=== PATIENT | female | born 1955 | race Caucasian/White ===

== ENCOUNTER 2018-01-19 00:07 | Emergency (ER) | payer OTHER ==
[~2018-01-19] VITALS: Ht 162.6 cm; Wt 47.6 kg
[~2018-01-19 00:07] MED LIST: ARMOUR THYROID120 M1 PO; ARMOUR THYROID300 MG PO; BIO IDENTICAL; CHLORDIAZEPOXID10 MG PO; CORTEF5 MG PO; DHEA25 MG PO; FLEXERIL PO; HYDROCODONE-APA1 TA1 PO; INDOMETHACIN 2525 MG PO; KRILL OIL500 MG; LIBRIUM; MELATONIN10 M2 PO; PROPRANOLOL 1010 M1 PO; T COMPOUND; VICODIN 5-5001 EACH PO; VITAMIN D35000 UNI1 PO; ZOVIRAX15 GM TP; [UNRECOGNIZED DRUG - OTHER]; [UNRECOGNIZED DRUG - OTHER]; [UNRECOGNIZED DRUG - OTHER]; [UNRECOGNIZED DRUG - OTHER]; [UNRECOGNIZED DRUG - OTHER]
[2018-01-19 00:19] VITALS: BP 147/78
[2018-01-19] MEDS ORDERED: HYDROCODONE-AP1 EAC6 PO (00:24)
== END 2018-01-19 00:30 | disposition home or self-care (01) ==
LOC: M.ERS 00:07
DX: G89.29 Other chronic pain (principal); M79.644 Pain in right finger(s); E03.9 Hypothyroidism, unspecified; F41.0 Panic disorder [episodic paroxysmal anxiety]; F17.210 Nicotine dependence, cigarettes, uncomplicated; Z88.6 Allergy status to analgesic agent; Z88.8 Allergy status to other drugs, medicaments and biological substances

== ENCOUNTER 2018-04-26 08:12 | Emergency (ER) | payer OTHER ==
[~2018-04-26] VITALS: Ht 160 cm; Wt 45.4 kg
[~2018-04-26 08:12] MED LIST changes: +HYDROCODONE-AP1 EAC6 PO
[2018-04-26] MEDS ORDERED: ASPIR 8181 MG PO (08:18)
[2018-04-26] MEDS ORDERED: ARMOUR THYROID15 M1 PO (08:19)
[2018-04-26] MEDS ORDERED: LIBRAX CAPSULE1 EACH PO (08:19)
[2018-04-26] MEDS ORDERED: VITAMIN B-12500 MCG PO (08:19)
[2018-04-26] MEDS ORDERED: PROPRANOLOL 1010 MG PO (08:19)
[2018-04-26 10:57] VITALS: BP 135/80
== END 2018-04-26 10:58 | disposition home or self-care (01) ==
LOC: M.ERS 08:12
DX: S00.83XA Contusion of other part of head, initial encounter (principal); E03.9 Hypothyroidism, unspecified; F41.0 Panic disorder [episodic paroxysmal anxiety]; F17.210 Nicotine dependence, cigarettes, uncomplicated; Z88.8 Allergy status to other drugs, medicaments and biological substances; W22.8XXA Striking against or struck by other objects, initial encounter; Y93.89 Activity, other specified; Y92.89 Other specified places as the place of occurrence of the external cause; Y99.8 Other external cause status

== ENCOUNTER 2018-05-22 04:30 | Inpatient (IN) | payer OTHER ==
[~2018-05-22] VITALS: Ht 160 cm; Wt 52.2 kg
[~2018-05-22 04:30] MED LIST changes: +ARMOUR THYROID15 M1 PO; +ASPIR 8181 MG PO; +LIBRAX CAPSULE1 EACH PO; +PROPRANOLOL 1010 MG PO; +VITAMIN B-12500 MCG PO
[2018-05-22 04:45] VITALS: BP 142/77
[2018-05-22 05:26] LABS: HEMATOCRIT 33.1 % (37.0-47.0); HEMOGLOBIN 11.5 gm/dL (12.0-15.0); MCH 36.2 pg (26.0-34.0); MCHC 34.8 g/dL (28.0-37.0); MPV 7.5 fl. (7.2-11.1); NUCLEATED RBCS 0 /100WBC; PLATELET COUNT* 205 thou/uL (150-400); RBC 3.18 mil/uL (4.20-5.00); RDW-CV 12.4 % (10.5-14.5); WBC 8.6 thou/uL (4.0-11.0)
[2018-05-22 05:36] LABS: PROTIME 10.4 Seconds (9.20-11.50)
[2018-05-22 05:54] LABS: CALCIUM 7.7 mg/dL (8.5-10.1); CREATININE 0.5 mg/dL (0.6-1.3); POTASSIUM 4.1 mmol/L (3.5-5.1)
[2018-05-22 05:59] LABS: ALBUMIN 3.6 g/dL (3.4-5.0); TOTAL BILIRUBIN 0.4 mg/dL (<0.1-1.0); TOTAL PROTEIN 6.4 g/dL (6.4-8.2)
[2018-05-22 06:18] LABS: ABSOLUTE EOSINOPHILS 0.1 thou/uL (0.0-0.7); ABSOLUTE LYMPHOCYTES 0.9 thou/uL (0.8-5.3); ABSOLUTE MONOCYTES 0.4 thou/uL (0.0-1.2); ABSOLUTE NEUTROPHILS 7.2 thou/uL (1.6-8.1); METAMYELOCYTES 1 %; PLATELET ESTIMATE ADEQUATE
[2018-05-22 07:15] LABS: AMP/METHAMP Negative (Negative); BARBITURATES Negative (Negative); BENZODIAZEPINES POSITIVE (Negative); COCAINE Negative (Negative); METHADONE Negative (Negative); OPIATES Negative (Negative); PCP Negative (Negative); THC Negative (Negative)
--- NOTE | 2018-05-22 07:33 | NUR ---
UPON ARRIVAL FROM CT, CT STATES PT'S IV WAS BAD. CT TRIED TO START IV AND WAS UNSUCCESSFUL. NEW IV STARTED BY THIS RN
[2018-05-22 08:47] VITALS: BP 112/71
[2018-05-22 08:54] VITALS: BP 130/78
[2018-05-22] MEDS ORDERED: CHLORDIAZEPOXID25 M1 PO (09:43)
[2018-05-22 10:43] LABS: CALCIUM 7.6 mg/dL (8.5-10.1); CREATININE 0.6 mg/dL (0.6-1.3); POTASSIUM 3.8 mmol/L (3.5-5.1)
--- NOTE | 2018-05-22 12:01 | EKG ---
[place] [address] ELECTROCARDIOGRAM REPORT Name: FARZAD YOUNGER Room: [address] ADM IN M.R.#: [id number] Admission: 05/22/18 Attend Phys: Baldemar Dumont, Discharge: Date of : 57 Report #: [id number] THIS REPORT FOR: //name// [facility] [place] ED Test Date: 2018-05-22 Test Time: 05:08:18 Pat Name: FARZAD YOUNGER Department: Room: [facility] Gender: F Home Stager: FAZAL : 1955 Requested By: Vandana Stout Order Number: [id number] MD: Aaron Pelletier Measurements Intervals [place] Rate: 87 P: 72 HI: 137 QRS: 92 QRSD: 106 T: 28 QT: 404 QTc: 486 Interpretive Statements Sinus rhythm Left posterior fascicular block Borderline prolonged QT interval Compared to ECG 01/03/2015 11:41:13 Left posterior fascicular block now present Right-axis deviation no longer present Atrial abnormality no longer present Electronically Signed On 05-22-2018 12:01:34 CDT by Aaron Pelletier [email or web address] <ELECTRONICALLY SIGNED> By: Aaron Pelletier MD, FACC 05/22/18 1201 0508 [id number] Aaron Pelletier MD, FACC /EPI
[2018-05-22 16:52] VITALS: BP 179/65
--- NOTE | 2018-05-22 19:07 | NUR ---
ALERT AND ORIENTED X3, VERY FORGETFUL. IV I SPATENT AND INFUSING. PATIPEREZN HAS HAD TWO EPISODE OF VOMITTING BUT DENIES NEED FOR NAUSEA MEDICATION. PAIN BEING MANAGED WITH PO AND IV PAIN MEDICATION. HAVING TREMORS, VERY RESTLESS AND HAS TRIED TO GET UP ON OWN MULTIPLE TIMES THROUGHOUT SHIFT. PATIENT DC'D IV THIS AM AND ALMOST DC'D THE 2ND THIS AFTERNOON. PATIENT ADMITS TO ALCOHOL ABUSE AND ALCOHOL WITHDRAWAL ASSESSMENT CHARTED. WITHDRAWAL SYMPTOMS HAVE PROGRESSED THROUGHOUT SHIFT, DR. MATTSON HAS BEEN NOTFIED AND ORDERED HER TO TRANSFER TO [facility]. ATIVAN HAS BEEN GIVEN Q4H THROUGHOUT SHIFT. PATIENT IS TACHY AND ELEVATED BP. SLING IN PLACE ON LEFT ARM. HOURLY ROUNDS HAVE BEEN MAINTAINED THROUGHOUT SHIFT. SITTER AT BEDSIDE AT THIS TIME. CALL LIGHT IS WITHIN REACH. NURSING WILL CONTINUE TO MONITOR.
[2018-05-22 19:20] VITALS: BP 140/70
[2018-05-22 20:00] VITALS: BP 155/54
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
[2018-05-23 04:51] LABS: HEMATOCRIT 25.8 % (37.0-47.0); MCH 36.7 pg (26.0-34.0); MCHC 34.9 g/dL (28.0-37.0); MCV 105.2 fL (80.0-100.0); MPV 8.1 fl. (7.2-11.1); RBC 2.45 mil/uL (4.20-5.00); RDW-CV 12.4 % (10.5-14.5); WBC 3.3 thou/uL (4.0-11.0)
[2018-05-23 05:13] LABS: CALCIUM 7.4 mg/dL (8.5-10.1); CREATININE 0.5 mg/dL (0.6-1.3); POTASSIUM 3.8 mmol/L (3.5-5.1)
[2018-05-23 05:30] VITALS: BP 120/72
[2018-05-23 08:07] VITALS: BP 133/69
--- NOTE | 2018-05-23 09:46 | NUR ---
ASSUMED CARE OF PT THIS AM AROUND 0715- SENIOR STATISTICIAN IN PLACE ORDERED, TRACING ST- UPON ASSESSMENT PT NOTED TO BE RESTING IN BED, EYES CLOSED- PT ARROUSABLE, BUT DROWSY THIS AM- PT A&O X3- CONTINENT OF BOWEL AND BLADDER- SBA WITH AMBULATION, NWB TO LEFT UE SLING IN PLACE INDICATED- LCTA, RESP EVEN AND UN-LABORED- VSS, O2 SAT 98% ON RA- ABDOMEN SOFT/ROUND/NON-TENDER, BS X4 QUADS- LAST BM REPORTED 05/22/18- IV NOTED TO RIGHT HAND INTACT, IVF INFUSSING PRESCRIBED- SKIN TEAR REPORTED TO BACK, WITH DRESSING IN PLACE INDICATED- CIWA THIS AM NOTED TO BE A 3, ATIVAN PRESCIBED-GOOD PO INTAKE NOTED THIS AM WITH BREAKFAST- PT RATES PAIN 05/04 THIS AM- PRN OXY GIVEN AT 0910-ICE TO SHOULDER FOR PAIN-LEFT ARM NOTED WITH BRUISING AND SWELLING, SENSATION INTACT, LEFT RADIAL PULSE 1+- CALL LIGHT AND PERSONAL BELONGINGS WITH IN REACH-SITTER AT SIDE R/T SAFETY/NEEDS- ALL NEEDS MET AT THIS TIME-WCTM
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
[2018-05-23 12:00] VITALS: BP 110/47
[2018-05-23 12:14] LABS: CALCIUM 7.9 mg/dL (8.5-10.1); CREATININE 0.6 mg/dL (0.6-1.3); POTASSIUM 4.1 mmol/L (3.5-5.1)
--- NOTE | 2018-05-23 16:55 | NUR ---
PT CURRENLTY RESTING IN BED, SITTER AT SIDE FOR SAFETY/NEEDS- TECHNICAL SME IN PLACE ORDERED, TRACING ST- IV TO RIGHT HAND NOTED TO CLOT OFF THIS SHIFT, NEW 20 GAUGE PLACED TO RIGHT FA- IVF INFUSSING PRESCIBED- NA+ STILL REMAINS AT 126 THIS SHIFT- POOR PO INTAKE WITH MEALS- ENSURE SHAKE OFFERED- LATEST CIWA NOTED AT 8- PT NOTED TO BE ANXIOUS WITH IMPAIRED COGNITION- CONFUSSION NOTED- SCHEDULED ATIVAN GIVEN WITH NEEDS PRN ATIVAN X1 THIS SHIFT- PT CONTINUES TO BECOME ANXIOUS AND NOTED TO BE TRYING TO CLIMB OUT OF BED, IMPULSIVE AT TIMES- PRN OXY X3 THIS SHIFT WITH LATEST DOSE AT 1639-SLING EDUCATION ONGOING, PT NOTED TO BE TAKING LEFT ARM OUT OF SLING AND DANGLING- CONSTANT REQUEING NEEDED- BRUISING AND SWELLING CONTINUES TO LEFT UE- CALL LIGHT AND PERSONAL BELONGINGS WITH IN REACH- ALL NEEDS MET AT THIS TIME-WCTM
[2018-05-23 17:15] VITALS: BP 144/61
[2018-05-23 20:00] VITALS: BP 151/86
--- NOTE | 2018-05-23 21:59 | NUR ---
PT ALERT CONFUSED TO PLACE AND SITUATION. AGGITATED, MOVING AROUND IN BED. MILD TREMORS. ATIVAN GIVEN FOR CIWA 8. OXYCODONE GIVEN FOR PAIN IN L SHOULDER 03/04. PT SLEEPING AT THIS TIME. TELEMETRY SHOWS ST 129 UPON INITAL ASSESSMENT. HR 110 WHILE SLEEPING.
[2018-05-24 04:00] VITALS: BP 129/66; BP 136/61
[2018-05-24 04:51] LABS: CALCIUM 7.5 mg/dL (8.5-10.1); CREATININE 0.6 mg/dL (0.6-1.3); MAGNESIUM 1.4 mg/dL (1.8-2.4); POTASSIUM 3.5 mmol/L (3.5-5.1)
--- NOTE | 2018-05-24 05:01 | NUR ---
PT RESTING INTERMITTENTLY. ATIVAN GIVEN PRN WITH SCHEDULED DOSES. PAIN MEDICATION GIVEN TWICE FOR L SHOULDER PAIN. ST 104 AT REST.
[2018-05-24 08:20] VITALS: BP 130/73
[2018-05-24 10:30] LABS: URINE BILIRUBIN NEGATIVE (Negative); URINE BLOOD NEGATIVE (Negative); URINE CLARITY CLEAR; URINE COLOR YELLOW; URINE GLUCOSE-RANDOM NEGATIVE (Negative); URINE KETONES NEGATIVE (Negative); URINE LEUKOCYTES-REFLEX NEGATIVE (Negative); URINE NITRITE-REFLEX NEGATIVE (Negative); URINE PROTEIN NEGATIVE (Negative); URINE UROBILINOGEN 0.2 E.U./dl (0.2-1.0)
[2018-05-24 12:32] LABS: CALCIUM 7.6 mg/dL (8.5-10.1); CREATININE 0.5 mg/dL (0.6-1.3); POTASSIUM 3.6 mmol/L (3.5-5.1)
[2018-05-24 15:27] VITALS: BP 132/74
--- NOTE | 2018-05-24 16:54 | NUR ---
PATIENT ALERT AND ORIENTED X 2-3 WHEN AWAKE. SLEEPING MOST OF DAY. MORE ALERT THIS EVENING, BUT BECOMING MORE ANXIOUS. PRN ATIVAN GIVEN. MULTIVITAMIN BAG INFUSING CURRENTLY. OXYIR USED FOR PAIN CONTROL. SENNA GIVEN TO PREVENT CONSTIPATION. LEFT ARM REMAINS SWOLLEN AND BRUISED. ICE PACKS AND SLING IN PLACE. ORTHO FOLLOWING FOR POSSIBLE SURGICAL INTERVENTION. VSS. SINUS TACH ON MONITOR. WOULD FALL ASLEEP DURING CIWA ASSESSMENTS. BRUISING NOTED ALL OVER BODY. UNSTEADY GAIT WHILE AMBULATING TO BATHROOM. UA SENT. REMAINS ON 1:1 OBSERVATION. WILL CONTINUE TO MONITOR.
--- NOTE | 2018-05-24 17:02 | NUR ---
NURSING DOCUMENTATION BY STACY CALL REVIEWED.
[2018-05-24 20:00] VITALS: BP 158/85
--- NOTE | 2018-05-25 03:12 | NUR ---
PT ORIENTED TO SELF. CONFUSED. CIWA SCORES 11-15. ATIVAN SCHEDULED AND PRN GIVEN. AMBULATES TO BR WITH ASSIST OF ONE.L ARM PAIN CONTROLLED WITH PAIN MEDICATION. L ARM SLING ON. NWB L ARM. ON RA. TELEMETRY SHOWS ST. NS AT 100MLS/HR.
[2018-05-25 06:20] LABS: HEMATOCRIT 22.2 % (37.0-47.0); HEMOGLOBIN 7.7 gm/dL (12.0-15.0); MCH 36.4 pg (26.0-34.0); MCHC 34.6 g/dL (28.0-37.0); MCV 105.5 fL (80.0-100.0); MPV 7.5 fl. (7.2-11.1); RBC 2.1 mil/uL (4.20-5.00); RDW-CV 12.5 % (10.5-14.5)
[2018-05-25 06:24] LABS: CALCIUM 7.5 mg/dL (8.5-10.1); CREATININE 0.6 mg/dL (0.6-1.3); MAGNESIUM 1.5 mg/dL (1.8-2.4); POTASSIUM 3.4 mmol/L (3.5-5.1)
--- NOTE | 2018-05-25 06:37 | NUR ---
AT 0600 PTS BREATH SOUNDS WITH CRACKLES AND COURSE. O2 SAT 88% ON RA. DR FRAIRE NOTIFIED. O2 AT 2 LITERS NC. IVF D/C. BNP, PORTABLE CXRAY ORDERED. JAVON BOSCH HELD.
[2018-05-25 08:00] VITALS: BP 120/66
[2018-05-25 12:00] VITALS: BP 129/71
--- NOTE | 2018-05-25 12:41 | NUR ---
VSS, ASSUMED CARE IN THE AM, ASSESSMENT PERFORMED AND CHARTED, FALL PRECAUTIONS IN PLACE AND CALL LIGHT IN REACH, PT IS A&O1-2 SHE IS VERY SLEEPY AND IMPULSIVE, SITTER AT BEDSIDE AND CALL LIGHT IN REACH, PT IS TRACING ST ON THE MONITOR, SHE IS ON 2L NC AND IS UP WITH ONE TO BSC, SHE STATES PAIN IN HER RIGHT ARM, HER GOAL IS Sfety and IMPROVE MENTATION, WILL FOLLOW WITH PLAN OF CARE.
[2018-05-25 17:02] VITALS: BP 117/76
[2018-05-25 20:06] VITALS: BP 154/84
[2018-05-25 23:47] VITALS: BP 112/58
[2018-05-26 04:47] LABS: MAGNESIUM 1.8 mg/dL (1.8-2.4)
[2018-05-26 04:50] VITALS: BP 107/50
--- NOTE | 2018-05-26 05:56 | NUR ---
PT IS ABLE TO COMMUNICATE HER NEEDS WITH MINOR DIFFICULTY; SHE IS CONFUSED AND OFTEN REQUIRES ADDITIONAL TIME TO RESPOND. 1:1 OBSERVATION WITH A SITTER MAINTAINED; PT STILL TRYING TO GET OUT OF BED AND PULLING AT MEDICAL DEVICES FREQUENTLY. CURRENT PAIN MEDICATION REGIMEN HAS BEEN ADEQUATE FOR CONTROLLING HER PAIN UP TO THIS TIME. SLING TO LEFT ARM MAINTAINED UP TO THIS TIME. CIWA PROTOCOL MAINTAINED. SURGERY FOLLOWING.
[2018-05-26 08:00] VITALS: BP 121/68
[2018-05-26 12:00] VITALS: BP 123/79
--- NOTE | 2018-05-26 12:00 | NUR ---
ASSUMED CARE OF PT AT 0730. PT RESTING IN BED. 1:1 SITTER AT BEDSIDE. PT A&0X1, FORGETFUL, CONFUSED AND IMPULSIVE AT TIMES. CIWA'S COMPLETED. PT SCORING 9. REFER TO CHARTING. PT COMPLAINS OF PAIN TO LEFT SHOULDER- TREATED WITH PRN OXY WITH PARTIAL RELIEF. LEFT ARM IN SLING- BRUISING NOTED. IMMOBILIZATION INSTRUCTED. PT IMPULSIVE, PULLING AT SLING AND MEDICAL EQUIPMENT, NOTED REASON FOR SITTER AT BEDSIDE. INFLUENZA AND MRSA SWAB COLLECTED AND SENT TO LAB. AWAITING RESULTS. URINALYSIS AND SPUTUM NEEDS TO BE OBTAINED. PT TRACING ST ON THE WELDING PANTOGRAPH MACHINE OPERATOR. ON 1L NC SAT 97%, COARSE LUNG SOUNDS NOTED, IV ANTIBIOTICS STARTED TODAY PER DR MATTSON. PT UP WITH 1 ASSIST BSC. PT GOAL FOR TODAY IS REMAIN FREE FROM HALLUCINATIONS, INCREASE ACTIVITY, PAIN MGMT AND MONITOR CIWA'S. AM ASSESSMENT CHARTED. MEDICATIONS PER SEP. PT REPOSITIONS SELF WITH REMINDERS. HOURLY ROUNDING OBSERVED. BED IN LOW POSITION. BED ALARM IN PLACE. FALL PRECAUTIONS IN PLACE. 1:1 SITTER AT BEDSIDE. CALL LIGHT WITHIN REACH. WILL CONTINUE PLAN OF CARE.
[2018-05-26 12:44] LABS: INFLUENZA A ANTIGEN None Detected (None Detect); INFLUENZA B ANTIGEN None Detected (None Detect)
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
--- NOTE | 2018-05-26 17:50 | NUR ---
NO ACUTE CHANGES THROUGHOUT SHIFT. REFER TO CHARTING. URINALYSIS OBTAINED AND SENT TO LAB. AWAITING RESULTS. CIWA CONTINUES TO BE 8-10. REFER TO CHARTING. SOME VISUAL HALLUCINATIONS THIS AFTERNOON. PT CONTINUES TO BE REMINDED ABOUT NWB LUE AND TO LEAVE LUE IN SLING. PT TREATED FOR PAIN THIS AFTERNOON TO LEFT SHOULDER WITH PARTIAL RELIEF. PT APPETITE FAIR. NOT PROGRESSING TOWARDS GOALS. CONTINUES TO TRACE SR/ST ON THE PROPERTIES SUPERVISOR. ON 1L NC SAT UPPER 90'S. DENIES ANY SHORTNESS OF BREATH. PT UP WITH 1 ASSIST TO BATHROOM. MEDICATIONS PER SEP. PT REPOSITIONS SELF WITH REMINDERS. HOURLY ROUNDING OBSERVED. BED IN LOW POSITION. BED ALARM IN PLACE. FALL PRECAUTIONS IN PLACE. CALL LIGHT WITHIN REACH. WILL CONTINUE PLAN OF CARE.
[2018-05-26 19:20] VITALS: BP 140/63
[2018-05-27 00:27] VITALS: BP 117/59
--- NOTE | 2018-05-27 02:40 | NUR ---
ASSUMED CARE OF PT AT 1900. PT IS CONFUSED. VSS. PERTREY. PT IS VERY IMPULSIVE AND RESTLESS. PT IS GETTING FENTANYL FOR PAIN. PT IS IN SINUS RYTHM ON THE TELEMETRY. PT IS RESTING COMFORTABLY IN BED. RESPIRATIONS ARE EVEN AND NONLABORED. WILL CONTINUE TO MONITOR PT.
[2018-05-27 04:17] VITALS: BP 157/83
[2018-05-27 05:41] LABS: HEMATOCRIT 29.8 % (37.0-47.0); MCH 36.5 pg (26.0-34.0); MCV 107.2 fL (80.0-100.0); MPV 9.2 fl. (7.2-11.1); RBC 2.78 mil/uL (4.20-5.00); RDW-CV 12.9 % (10.5-14.5); WBC 7.3 thou/uL (4.0-11.0)
[2018-05-27 06:29] LABS: HEMOGLOBIN 10.1 gm/dL (12.0-15.0)
[2018-05-27 08:00] VITALS: BP 123/72
--- NOTE | 2018-05-27 10:38 | NUR ---
ASSUMED CARE OF PT AT 0730. PT RESTING IN BED. 1:1 SITTER AT BEDSIDE. PT A&6I6-AGSA ONLY. FORGETUL, CONFUSED AND IMPULSIVE. PT COMPLAINED OF PAIN TO LEFT SHOULDER- TREATED WITH PRN OXYCODONE WITH PARTIAL RELIEF. PT TRACING SR ON THE MILITARY ADMINISTRATIVE TECHNICIAN. LUE IN SLING- NWB, BRUISING AND DISCOLORATION NOTED- PHYSICIANS AWARE. LUE ELEVATED ON PILLOWS. PT ON RA THIS AM DURING ASSESSMENT AND SAT 88%, PT PLACED ON 2L NC SAT UP TO 93%. COARSE LUNG SOUNDS NOTED. PT UP WITH 1 ASSIST TO BSC. PT GOAL FOR TODAY IS TO MONITOR ORIENTATION, PAIN MGMT, PT AND OT EVAL AND TREAT AND DISCHARGE PLANNING ORIENTATION RETURNS. IVF DISCONTINUED PER DR MATTSON. AM ASSESSMENTA CHARTED. MEDICATIONS PER SEP. PT REPOSITIONS SELF WITH REMINDERS. HOURLY ROUNDING OBSERVED. BED IN LOW POSITION. BED ALARM IN PLACE. FALL PRECAUTIONS IN PLACE. CALL LIGHT WITHIN REACH. WILL CONTINUE PLAN OF CARE.
[2018-05-27 12:00] VITALS: BP 120/55
[2018-05-27 16:00] VITALS: BP 153/85
--- NOTE | 2018-05-27 17:35 | NUR ---
NO ACUTE CHANGES THROUGHOUT SHIFT. REFER TO CHARTING. PT WORKED WITH PHYSICAL AND OCCUPATIONAL THERAPY TODAY- TOLERATED FAIR. PT SON, ANGELICA AND DAUGHTER IN LAW HERE THIS AM AND UPDATED ON CURRENT PLAN OF CARE. PT COMPLAINS OF PAIN TO LEFT SHOULDER THROUGHOUT SHIFT-TREATED WITH PRN OXYCODONE WITH PARTIAL RELIEF. CIWA MONITORING DC'D PER DOCTOR ORDER. 1:1 SITTER PULLED LATE AFTERNOON- PT REQUIRES REPITITIVE EDUCATION REGARDING NWB STATUS TO LUE AND SLING PLACEMENT. PT CONTINUES TO TO BE A&0X1, IMPULSIVE, CONFUSED AND FORGETFUL. PT NOT PROGRESSING TOWARDS GOALS. CONTINUES TO TRACE SR/ST. ON 2L NC SAT UPPER 90'S. PT UP WITH 1 ASSIST BSC- WEAK AND UNSTEADY. MEDICATIONS PER SEP. PT REPOSITIONS SELF WITH REMINDERS. HOURLY ROUNDING OBSERVED. BED IN LOW POSITION. BED ALARM IN PLACE. FALL PRECAUTIONS IN PLACE. CALL LIGHT WITHIN REACH. WILL CONTINUE PLAN OF CARE.
[2018-05-28] VITALS: BP 132/69
--- NOTE | 2018-05-28 02:56 | NUR ---
ASSUMED CARE OF PT AT 1900. PT CONTINUE TO BE VERY CONFUSED AND RESTLESS. PT CONTINUE TO TRY AND TAKE OFF HER ARM SLING. PT IS ON 1:1 STATUS DO TO CONFUSION AND ALCOHOL DETOX. PT IS IN SINUS TACHYCARDIA ON THE TELEMETRY. PT IS CURRENTLY RESTING OFF AND ON. REPIRATIONS ARE EVEN AND NONLABORED. WILL CONTINUE TO MONITOR PT.
[2018-05-28 04:00] VITALS: BP 128/73
[2018-05-28 09:14] VITALS: BP 145/68
[2018-05-28 11:16] VITALS: BP 137/69
--- NOTE | 2018-05-28 14:36 | NUR ---
Pt continues to be confused and has sitter. CM following
[2018-05-28 15:17] VITALS: BP 156/82
--- NOTE | 2018-05-28 16:57 | NUR ---
VSS THIS SHIFT. PT IS AOX1-2 THIS SHIFT AND DISCUSSION WAS HAD WITH SIGNIFICANT OTHER, PROVIDER, AND CASE MANAGEMENT REGARDING PT STATUS. CONCERN WITH PT CONFUSION AND HAVING HAD PREVIOUS FALLS. DR MATTSON ORDERED CT OF HEAD AND LABS FOR AM. PT LUNGS COARSE WITH MINIMAL COUGH, TOLERATING RA THIS SHIFT. PT ST ON THE MONITOR THIS SHIFT. PT HAS NOTED BRUISING ON ARM AND BACK/LOWER TORSO AND EDEMA ON L UPPER EXTREMITY. PT PULLS AT BRACE FOR BROKEN HUMERUS. CIWA SCALE HAS BEEN COMPLETED AND PT TOLERATING PAIN MEDS THIS SHIFT. PT NOT EATING A LOT WITH MEALS AND IS CONFUSED REGARDING IS THERAPY. 1:1 AT BEDSIDE FOR SAFETY CONCERNS. WILL CONTINUE TO ASSESS AND MONITOR.
[2018-05-28 20:30] VITALS: BP 168/98
[2018-05-29] VITALS (7 sets, daily range): BP systolic 80–165; BP diastolic 55–100
[2018-05-29 04:43] LABS: HEMATOCRIT 30.3 % (37.0-47.0); HEMOGLOBIN 10.3 gm/dL (12.0-15.0); MCH 35.6 pg (26.0-34.0); MCHC 33.9 g/dL (28.0-37.0); MCV 105.1 fL (80.0-100.0); RBC 2.89 mil/uL (4.20-5.00); RDW-CV 12.9 % (10.5-14.5); WBC 9.9 thou/uL (4.0-11.0)
[2018-05-29 04:48] LABS: ALKALINE PHOSPHATASE 67 U/L (46-116); ANION GAP 5 mmol/L (7-16); BUN 8 mg/dL (7-18); CHLORIDE 93 mmol/L (98-107); CO2 30 mmol/L (21-32); CREATININE 0.7 mg/dL (0.6-1.3); GLUCOSE 96 mg/dL (70-99); MAGNESIUM 1.7 mg/dL (1.8-2.4); POTASSIUM 3.2 mmol/L (3.5-5.1); SGOT 42 U/L (15-37); SGPT 32 U/L (30-65); SODIUM 128 mmol/L (136-145); TOTAL BILIRUBIN 1.2 mg/dL (<0.1-1.0); TOTAL PROTEIN 6.5 g/dL (6.4-8.2)
[2018-05-29 04:53] LABS: AMMONIA < 10 umol/L (11-32)
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
--- NOTE | 2018-05-29 09:57 | NUR ---
RECEIVED PT CARE 0700. SHE IS AWAKE/ALERT AND ORIENTED X1 TO PERSON. SHE IS ABLE TO TELL ME HER NAME AND BIRTHDAY. SHE IS CONFUSED AND FORGETFUL. HER SPEECH IS CLEAR BUT NOT APPROPRIATE. HER THOUGHTS TRAIL OFF AND CONVERSATIONS ARE NOT FLUENT. AM ASSESSMENT CHARTED. MEDS PER MAR. SHE DENIES SOA. O2 SAT 94% ON ROOM AIR. C/O LEFT ARM/SHOULDER PAIN. PRN PAIN MEDICATION GIVEN WITH GOOD RELIEF. NURSING STAFF TOOK PATIENT TO THE LARGE SHOWER ROOM FOR A SHOWER THIS AM. PATIENT TOLERATED WELL. LEFT ARM IMMOBILIZER IN PLACE. SITTER AT BEDSIDE FOR PATIENTS SAFETY AND IMPULSIVENESS. BED ALARM ON. CALL LIGHT WITHIN REACH. WILL CONTINUE TO MONITOR.
[2018-05-29 18:04] LABS: MAGNESIUM 1.8 mg/dL (1.8-2.4)
[2018-05-29 18:05] LABS: POTASSIUM 4.3 mmol/L (3.5-5.1)
[2018-05-30 04:00] VITALS: BP 160/102
[2018-05-30 08:00] VITALS: BP 134/71
--- NOTE | 2018-05-30 08:56 | NUR ---
PT IS ABLE TO COMMUNICATE HER NEEDS TO STAFF WITH SOME DIFFICULTY; SHE IS SOMEWHAT DISORIENTED AND CONFUSED. ADDITIONALLY, SHE IS QUITE ANXIOUS, RESTLESS, AND IMPULSIVE. CURRENT PAIN MEDICATION REGIMEN HAS BEEN ADEQUATE FOR CONTROLLING HER PAIN UP TO THIS TIME. LEFT ARM IMMOBILIZER MAINTAINED. 1:1 SITTER MAINTAINED; PT STILL FALL RISK WELL INTERFERRING WITH MEDICAL EQUIPMENT ETC.
--- NOTE | 2018-05-30 10:02 | EKG ---
[place] [address] ELECTROCARDIOGRAM REPORT Name: FARZAD YOUNGER Room: [address] ADM IN M.R.#: [id number] Admission: 05/22/18 Attend Phys: Baldemar Dumont, Discharge: Date of : 57 Report #: [id number] THIS REPORT FOR: //name// [facility] Test Date: 2018-05-28 Test Time: 12:54:16 Pat Name: FARZAD YOUNGER Department: Room: [address] Gender: F Heavy Repairer: : 1955 Requested By: Baldemar Dumont Order Number: [id number] Jony MD: Emil Benavides Measurements Intervals [place] Rate: 90 P: 67 [place]: 123 QRS: 90 QRSD: 102 T: 56 QT: 360 QTc: 441 Interpretive Statements Sinus rhythm Probable left atrial enlargement Borderline right axis deviation Baseline wander in lead(s) V5,V6 Compared to ECG 05/22/2018 05:08:18 no change Electronically Signed On 05-30-2018 10:02:25 PROPERTY MANAGEMENT INTERN by Emil Benavides [email or web address] <ELECTRONICALLY SIGNED> By: Emil Benavides MD, FACC 05/30/18 1002 1254 1254 Emil Benavides MD, [facility] /EPI
[2018-05-30 10:26] LABS: CALCIUM 8.1 mg/dL (8.5-10.1); CREATININE 0.8 mg/dL (0.6-1.3); POTASSIUM 3.6 mmol/L (3.5-5.1)
--- NOTE | 2018-05-30 11:39 | NUR ---
INTELLIGENCE APPLICATIONS SPOKE TO THE PATIENT AT PATIENT'S REQUEST. PATIENT INFORMS THAT HER QUESTION WAS PERTAINING TO HER SURGERY. PATIENT STATES 'HOW LONG WILL THE SURGERY BE AND HOW LONG WILL IT TAKE TO HEAL?' D/C SUEDING MACHINE TENDER INFORMED THE PATIENT THAT THAT IS A QUESTION TO BE ADRESSED BY THE PHYSICIAN. PATIENT INFORMS THAT SHE 'WOULD JUST LIKE TO TALK'. PATIENT TALKED ABOUT HER CHILDREN STATING SHE HAS '3 KIDS. 2 BOYS AND ONE GIRL, BUT DO NOT TALK TO THEM OFTEN'. PATIENT INFORMS THAT SHE HAS 'BEEN FEELING DOWN LATELY', BECAUSE SHE HAS NOT BEEN ABLE TO SEE HER GRANDCHILDREN. 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 D/C SUEDING MACHINE TENDER INFORMED THE CM IN-CHARGE OF THE PATIENT OF THE CONVERSATION. CM WILL REMAIN AVAILABLE TO ASSIST AND FOLLLOW NEEDED.
[2018-05-30 11:47] VITALS: BP 131/75
[2018-05-30 14:31] LABS: POTASSIUM 3.7 mmol/L (3.5-5.1)
[2018-05-30 16:08] VITALS: BP 180/85
--- NOTE | 2018-05-30 17:37 | NUR ---
PT INTERMITTENTLY CONFUSED THROUGHOUT SHIFT. SITTER AT BS FOR SAFETY. IMMOBILIZER TO LEFT SHOULDER. GOOD APPETITE. IVF STARTED THIS AM.
[2018-05-30 18:18] LABS: CALCIUM 7.9 mg/dL (8.5-10.1); CREATININE 0.8 mg/dL (0.6-1.3); POTASSIUM 3.4 mmol/L (3.5-5.1)
[2018-05-30 20:00] VITALS: BP 159/93
[2018-05-31] VITALS: BP 154/85
[2018-05-31 03:47] VITALS: BP 154/85
[2018-05-31 05:17] LABS: HEMOGLOBIN 9.7 gm/dL (12.0-15.0); MCH 35.9 pg (26.0-34.0); MCHC 33.5 g/dL (28.0-37.0); MPV 7.9 fl. (7.2-11.1); RBC 2.71 mil/uL (4.20-5.00); RDW-CV 13.3 % (10.5-14.5); WBC 8.2 thou/uL (4.0-11.0)
[2018-05-31 05:27] LABS: APTT 30.8 Seconds (25.0-31.3); INR 1.1; PROTIME 11.5 Seconds (9.20-11.50)
--- NOTE | 2018-05-31 05:28 | NUR ---
PT IS ABLE TO COMMUNICATE HER NEEDS TO STAFF WITH SOME DIFFICULTY; SHE IS OFTEN CONFUSED, FORGETFUL AND HAS TROUBLE EXPRESSING HER THOUGHTS COHERENTLY. CURRENT PAIN MEDICATION REGIMEN HAS BEEN ADEQUATE FOR CONTROLLING HER PAIN UP TO THIS TIME. SHE HAS BEEN NPO SINCE MIDNIGHT, EXCEPT FOR SIPS WITH MEDS, FOR LEFT ARM SURGERY LATER TODAY. LEFT ARM IMMOBILIZER MAINTAINED.
[2018-05-31 05:37] LABS: ALBUMIN 2.5 g/dL (3.4-5.0); CALCIUM 7.7 mg/dL (8.5-10.1); CREATININE 0.7 mg/dL (0.6-1.3); MAGNESIUM 1.6 mg/dL (1.8-2.4); POTASSIUM 3.7 mmol/L (3.5-5.1); TOTAL PROTEIN 5.6 g/dL (6.4-8.2)
[2018-05-31 08:13] LABS: URINE BILIRUBIN NEGATIVE (Negative); URINE BLOOD TRACE (Negative); URINE CLARITY CLEAR; URINE COLOR YELLOW; URINE GLUCOSE-RANDOM NEGATIVE (Negative); URINE KETONES NEGATIVE (Negative); URINE LEUKOCYTES-REFLEX NEGATIVE (Negative); URINE NITRITE-REFLEX NEGATIVE (Negative); URINE PROTEIN NEGATIVE (Negative); URINE UROBILINOGEN 0.2 E.U./dl (0.2-1.0)
[2018-05-31 08:24] VITALS: BP 151/86
--- NOTE | 2018-05-31 12:20 | NUR ---
PER PATIENT DOES HAVE A SMALL MONITOR IN HEART TO MONITOR HEART RATE ONLY. DEVICE IS NOT MRI COMPATIBLE. DR. CHOUDHARY NOTIFIED. SON AT BEDSIDE AND NOTIFIED WELL HE WAS UNSURE IF PATIENT HAD A MONITOR.
--- NOTE | 2018-05-31 18:53 | NUR ---
PATIENT TRANSFERED TO THE UNIT AROUND 0800, STABLE. SLIGHTLY CONFUSED. FALL PRECAUTIONS IN PLACE, WITH A SITTER IN THE ROOM. PATIENT LEFT FOR SURGERY AT 1400 AND IS CURRENTLY NOT BACK ON THE UNIT.
[2018-05-31 21:22] VITALS: BP 99/83
--- NOTE | 2018-05-31 21:45 | NUR ---
2121 PATIENT RETURNED TO ROOM POST-OP BY BED IN STABLE CONDITION. DROWSY, CALM, ORIENTED X 2-3. MEPILEX DRESSING LEFT UPPER ARM/SHOULDER CLEAN AND DRY. LEFT ARM IN SLING. MOD EDEMA LEFT ARM TO FINGERTIPS. SENSATION INTACT LEFT FINGERS WITH 2+ RADIAL PULSE. SCD'S IN PLACE. O2 ON AT 2L/MIN WITH CONTINUOUS CAPNOGRAPHY. CALL TO YANNICK (SIGNIFICANT OTHER) AT 2144 TO REPORT PATIENT BACK TO ROOM. HE GAVE A REMINDER THAT [facility] NEED SIGNED. SITTER AT BEDSIDE DUE TO PREVIOUS IMPULSIVE BEHAVIOR INCLUDING TAKING OFF LUE SLING/IMMOBILIZER WHICH NEEDS TO BE MANTAINED POST-OP. CONTINUE TO MONITOR.
[2018-06-01 04:42] LABS: HEMATOCRIT 27.2 % (37.0-47.0); HEMOGLOBIN 8.8 gm/dL (12.0-15.0); MCH 35.7 pg (26.0-34.0); MCHC 32.4 g/dL (28.0-37.0); MPV 8.6 fl. (7.2-11.1); RBC 2.48 mil/uL (4.20-5.00); RDW-CV 13.8 % (10.5-14.5); WBC 11.2 thou/uL (4.0-11.0)
[2018-06-01 05:02] LABS: CALCIUM 7.6 mg/dL (8.5-10.1); CREATININE 0.7 mg/dL (0.6-1.3); MAGNESIUM 2.1 mg/dL (1.8-2.4); POTASSIUM 3.9 mmol/L (3.5-5.1)
--- NOTE | 2018-06-01 05:38 | NUR ---
PATIENT ALERT TO SELF. AT TIMES APPROPRIATE WITH CONVERSATION. ALSO TALKING ABOUT GETTING THE BOYS NAME AND PUTTING THE INFORMATION ON THE MAR AND AND PUTTING IT IN THE BINDER. PULLING OFF HER OXYGEN AND PULSE-OX SENSORS, SCD'S ALSO REMOVED. WILL NOT KEEP LEFT ARM CORRECTLY IN THE SLING. CONSTANT ATTENTION FRO 2230-AFTER 0100 BEFORE FINALLY FALLING ASLEEP. MEDICATED FOR PAIN X 2 OF THIS WRITING. VITAL SIGNS STABLE, INCLUDING SPOT O2 SATS AFTER CONTINUOUS PULSE-OX REMOVED. [place] [facility] [place] DRESSING LEFT UPPER ARM/SHOULDER CLEAN AND DRY, ICE PACK APPLIED X 2. SENSATION AND PULSES REMAIN INTACT SURGICAL LIMB. SITTER REMAINS AT BEDSIDE FOR SAFETY. CONTINUE TO MONITOR.
[2018-06-01 06:32] VITALS: BP 149/63
[2018-06-01 08:00] VITALS: BP 154/82
--- NOTE | 2018-06-01 10:04 | CON ---
[address] [address] CONSULTATION Name: FARZAD YOUNGER Room: [address] IN M.R.#: [id number] Admission: 05/22/18 Attend Phys: Baldemar Dumont, Discharge: Date of : 57 Report #: [id number] THIS REPORT FOR: //name// CC: Isrrael Dumont DATE OF SERVICE: 05/30/2018 HISTORY OF PRESENT ILLNESS: This is a 63-year-old female patient who was evaluated by me for altered mental status. No reliable history is available. No family member is here. The patient thinks it is February and she is in [facility]. That is a very poor memory. She does not provide any reliable history. She does admit that she drinks heavy amount of alcohol and she smokes. She said she stopped doing it about 2 weeks ago. She was admitted after a fall and she had a fracture of the left humerus. She does not think she is confused, so it is tough to tell how long she has been confused like this. REVIEW OF SYSTEMS: A 14-point review of systems was carried out, but it is only from the record. The patient does not provide any reliable history. She does have some myalgias. She does have a history of panic attack, supraventricular tachycardia. She had a history of hypothyroidism as per record and she has been persistently hyponatremic when she is here, although her TSH is normal. She denies any other symptoms like any vision problems or any ENT problems. She denies any pain or any constitutional, dermatological, hematological symptoms. When I asked her about the psychiatry history, she is not able to give any proper answers. This was her relevant 14-point review of system the best I can tell. PAST MEDICAL HISTORY: Negative for any seizures or stroke. FAMILY HISTORY: Negative for early age stroke. SOCIAL HISTORY: She used to smoke as well as drink alcohol, but stopped doing it about 2 weeks ago. PHYSICAL EXAMINATION: Indicate that she is alert. She does not know what month it is. She does not know what day it is. She thinks she is in [facility] and our president is Gael, but her speech looks intact. She does not appear to have any marked difficulty with attention span. Cranial nerve examination 2-12 is unremarkable. Neuromuscular examination on the left arm is difficult to do, but from the rest of the extremities it looks okay. She has a position sense. Her reflexes are present. Pupils are somewhat bigger, but there is no papilledema. There is no meningeal sign. She is not complaining of any neck tenderness. Her sodium is 127, calcium is 8.1. CT scan of the head showed no definite abnormality. [place] [id number] CONSULTATION Name: FARZAD YOUNGER Room: [address] IN .R.#: [id number] Admission: 05/22/18 Attend Phys: Baldemar Dumont, Discharge: Date of : 57 Report #: [id number] LABORATORY DATA: Multiple labs are abnormal in this patient, which will be summarized below. She is moderately built individual who has no thyroid mass. Her hearing and vision looks adequate. Cardiac examinations appear unremarkable. She has some scattered rhonchi. No respiratory difficulty, no edema. Her pulses are palpable. Her MCV is high at 105 and platelet count was low, but it has come up. Sodium is 127. Her vitamin B12 is normal. A CT scan of the head does not show any definite abnormality. Her blood pressure is somewhat varied. The last one was 131/75, respiration is 18, pulse is 86, and temperature is 98.1. IMPRESSION: This patient is complaining of significant memory problem. 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 It is very difficult to be certain as the patient does appear to have a prior psychiatric history. She also says that she has a monitor and she does not know whether that is MRI compatible or not. RECOMMENDATION: 1. EEG. 2. Continue thiamine. 3. We can try to find out if her monitor is compatible with MRI and if it is, we can try to do the MRI in this patient to complete the workup. Depending upon her situation, she may need some different kind of living arrangement. She is also hyponatremic that most likely is contributing to her symptoms. More than 50 minutes of time was spent taking care of this patient today and majority of that time was spent counseling the patient and coordinating her care. Thank you very much for this referral. <ELECTRONICALLY SIGNED> By: Cecilio Grijalva MD 06/01/18 1004 1229 [id number] Grijalva MD /adelina
--- NOTE | 2018-06-01 10:04 | EEG ---
[address] [address] EEG STUDY REPORT Name: FARZAD YOUNGER Room: [address] IN M.R.#: [id number] Admission: 05/22/18 Attend Phys: Baldemar Dumont, Discharge: Date of : 57 Report #: [id number] THIS REPORT FOR: //name// CC: Isrrael Dumont DATE OF SERVICE: 05/30/2018 This patient is being evaluated for altered mental status. EEG was done by placing the electrodes by standard 10-20 system of electrode placement. Both referential and sequential montages were used for recording. Background activity in this patient's EEG is about 10 Hz and 30 microvolts. The patient became drowsy that is associated with bilateral slowing and vertex sharp waves. Photic stimulation is unremarkable. Throughout the record no active epileptiform activity was noticed. IMPRESSION: The patient's electroencephalogram does not demonstrate any epileptiform activity. It is intermixed with some theta range slowing. That is a nonspecific finding, which can occur with encephalopathy, effect of psychotropic medication, dementia, etc. Clinical correlation is recommended. <ELECTRONICALLY SIGNED> By: Cecilio Grijalva MD 06/01/18 1004 [id number] Grijalva MD /nt
[2018-06-01 16:00] VITALS: BP 125/62
--- NOTE | 2018-06-01 17:07 | NUR ---
PATIENT BEGAN THE DAY SLEEPY AND CONFUSED. NARCOTICS WERE DISCONTINUED BY THE DOCTOR AND WERE REPLACED BY IBUPROPHEN. CONFUSION DECREASED THE NARCOTICS PREVIOUSLY GIVEN WORE OFF. IS CURRENTLY AWAKE AND ALERT, STILL SLIGHTLY CONFUSED. FAMILY HAS BEEN VISITING THOUGHOUT THE DAY AND HAS LIFTED THE PATIENTS SPIRITS. HAS EATEN WELL FOR LUNCH AND DINNER MEALS. STAND BY ASSIST WITH SITTER IN ROOM DUE TO IMPULSIONS. YELLOW DRAINAGE OUT OF LEFT ARM, CLEANED BY OT. PUT PADS IN ARM SLING TO SOAK UP FUTURE DRAINAGE. FALL PRECAUTIONS IN PLACE. WILL CONTINUE TO MONITOR.
--- NOTE | 2018-06-01 18:22 | NUR ---
NURSING DOCUMENTATION BY STACY CALL REVIEWED.
[2018-06-01 20:00] VITALS: BP 143/83
[2018-06-02 04:00] VITALS: BP 140/82
[2018-06-02 05:12] LABS: ALBUMIN 2.8 g/dL (3.4-5.0); CALCIUM 7.9 mg/dL (8.5-10.1); CREATININE 0.7 mg/dL (0.6-1.3); MAGNESIUM 1.8 mg/dL (1.8-2.4); POTASSIUM 3.7 mmol/L (3.5-5.1); TOTAL BILIRUBIN 0.8 mg/dL (<0.1-1.0); TOTAL PROTEIN 5.5 g/dL (6.4-8.2)
[2018-06-02 05:19] LABS: HEMATOCRIT 27.5 % (37.0-47.0); HEMOGLOBIN 8.9 gm/dL (12.0-15.0); MCH 36.1 pg (26.0-34.0); MCHC 32.4 g/dL (28.0-37.0); MCV 111.5 fL (80.0-100.0); MPV 7.9 fl. (7.2-11.1); RBC 2.47 mil/uL (4.20-5.00); WBC 9.2 thou/uL (4.0-11.0)
[2018-06-02 08:41] VITALS: BP 112/47
--- NOTE | 2018-06-02 15:43 | NUR ---
SPOKE WITH EMMANUEL/REHAB LIASON REGARDING POSSIBLE REHAB CANDIDATE. SHE WILL TALK TO THERAPISTS AND SPEAK WITH . CM DISCUSSED WITH AND SHE ORDERED A REHAB EVAL. PT.NEEDS TO BE SITTER FREE FOR 24 HRS PER EMMANUEL BEFORE THEY CAN EVEN START AUTH WITH INSURANCE. INFORMED RERE BARRETT. ORDERED SITTER PRN. CM SPOKE WITH S.O. OF PT.IN BANSAL. HE WOULD MUCH RATHER HER STAY HERE FOR REHAB IF POSSIBLE. CM WILL FOLLOW.
[2018-06-02 15:51] VITALS: BP 129/71
--- NOTE | 2018-06-02 17:45 | NUR ---
RECEIVED CONSULT FOR POSSIBLE REHAB ADMISSION. CONSULT HAS BEEN ACKNOWLEDEGED BY TECH BRAZER TESTER AND DR. CARLISLE. PATIENT ADMITTED WITH ALCOHOL INTOXICATION AND LEFT ARM PAIN AFTER A FALL TWO DAY PRIOR. FOUND TO HAVE A LEFT COMMINUTED HUMERAL FX, NOW S/P ORIF. PATIENT WENT THROUGH WITHDRAWAL HAS ENCEPHALOPATHY STILL WITH CONFUSION, IMPROVING BUT STILL HAS NEED FOR 1:1 SITTER. PATIENT IS NWB ON LUE. WILL NEED REHAB VS SKILLED AT DISCHARGE. SPOKE WITH WALTER CASTELLANO INFORMED PATIENT MUST BE SITTER FREE FOR AT LEAST 24 HOURS TO QUALIFY FOR ACUTE REHAB. WILL FOLLOW ALONG WITH PATIENT TO SEE HOW SHE PROGRESSESS AND IF ABLE TO CLEAR ENOUGH TO QUALIFY FOR ACUTE REHAB. IF APPROPRIATE WILL NEED TO OBTAIN INSURANCE AUTHORIZATION. THANK YOU FOR THIS CONSULT.
--- NOTE | 2018-06-02 18:51 | NUR ---
PATIENT SPENT THE DAY TRYING TO PIECE TOGETHER THE EVENTS THAT OCCURED BEFORE ARRIVING AT THE HOSPITAL. HER SIGNIFICANT OTHER CAME IN AND TALKED WITH HER THROUGH THE EVENTS AND WROTE THEN DOWN ON PAPER FOR HER TO KEEP. SHE HAS BEEN CONFUSED THROUGHOUT THE DAY BELIEVING THAT SHE WAS AT WORK. PAIN HAS BEEN KEPT UNDER CONTROL WITH CURRENT REGIMEN. LEFT ARM HAS BEEN WEAPING, PREVENA PLACED. IV ANTIBIOTICS AND FLUIDS DISCONTINUED, IV SALINE LOCKED. HAS BEEN EATING WELL. HAS BEEN SLIGHTLY TACHY, WITH HIGHEST HR BEING 109, OTHERWISE VITALS STABLE. CURRENTLY SWITCHING TO A PRN SITTER SO THAT SHE CAN GET TRANSFERED OUT FOR REHAB. FALL PRECAUTIONS IN PLACE. WILL CONTINUE TO MONITOR.
[2018-06-02 20:00] VITALS: BP 127/58
--- NOTE | 2018-06-02 20:04 | NUR ---
NURSING DOCUMENTATION BY STACY CALL REVIEWED
[2018-06-03 00:23] VITALS: BP 130/65
[2018-06-03 03:53] VITALS: BP 137/66
--- NOTE | 2018-06-03 05:14 | NUR ---
ASSUMED CARE OF PT AT 1900 PT ALERT BUT CONFUSED VSS. PT CALM AND COOPERATIVE. PT GIVEN SCHEDULED PAIN MEDS AND PRN TYLENOL ONCE FOR PAIN. MELATONIN AT BEDTIME FOR SLEEP, ZOFRAN FOR C/O NAUSEA AND BENADRYL FOR ANXIETY AT RIGHT BEFORE 5AM. PT TOOK OFF HER PREVENA APPLIED MEPALEX DRSG, PREVIOUS SHIFT REPORTED THE DOCTOR WANTED IFT TAKEN OFF IF THE CANISTER GETS FULL. L SHOULDER WOUND MONI INTACT. WILL CONTINUE PLAN OF CARE.
[2018-06-03 05:30] LABS: ALBUMIN 2.5 g/dL (3.4-5.0); CALCIUM 8.1 mg/dL (8.5-10.1); CREATININE 0.7 mg/dL (0.6-1.3); MAGNESIUM 1.5 mg/dL (1.8-2.4); TOTAL BILIRUBIN 0.7 mg/dL (<0.1-1.0); TOTAL PROTEIN 5.2 g/dL (6.4-8.2)
[2018-06-03 05:52] LABS: HEMATOCRIT 23.1 % (37.0-47.0); HEMOGLOBIN 7.8 gm/dL (12.0-15.0); MCH 35.7 pg (26.0-34.0); MCHC 33.8 g/dL (28.0-37.0); MPV 8.1 fl. (7.2-11.1); RBC 2.19 mil/uL (4.20-5.00); RDW-CV 13.6 % (10.5-14.5); WBC 6.9 thou/uL (4.0-11.0)
[2018-06-03 05:59] LABS: MCV 105.7 fL (80.0-100.0)
[2018-06-03 16:00] VITALS: BP 136/69
[2018-06-03 20:00] VITALS: BP 116/61
[2018-06-03 22:23] LABS: MAGNESIUM 1.6 mg/dL (1.8-2.4); POTASSIUM 4.5 mmol/L (3.5-5.1)
[2018-06-03 23:13] LABS: HEPATITIS B SURFACE AG Negative (Negative)
--- NOTE | 2018-06-04 05:32 | NUR ---
ASSUMED CARE OF PT AT 1900 PT ALERT AND CONFUSED BUT REDIRECTABLE VS AND ASSESSMENT STABLE PT L ARM AND SHOULD SWOLLED POSITIVE CMS CHECKS. WILL CONTINUE PLAN OF CARE
[2018-06-04 08:00] VITALS: BP 132/70
--- NOTE | 2018-06-04 12:41 | CON ---
[address] [address] CONSULTATION Name: FARZAD YOUNGER Room: [address] IN .R.#: [id number] Admission: 05/22/18 Attend Phys: Baldemar Dumont, Discharge: Date of : 57 Report #: [id number] THIS REPORT FOR: //name// CC: Isrrael Dumont DATE OF SERVICE: 06/03/2018 REASON FOR CONSULTATION: Megaloblastic anemia. HISTORY OF PRESENT ILLNESS: A 63-year-old female who has been admitted to the hospital since 05/22/2018 due to a mechanical fall, trauma to the left shoulder. She was found to have a left humerus fracture. She also has been having confusion due to alcohol withdrawal. The patient had a CT scan of the head, which showed no intracranial abnormalities; however, the patient was evaluated today by Hematology during to macrocytic anemia. Her hemoglobin upon admission was 11.5. Back in 2014, it was 15.0, has been dropping gradually during her hospital stay, however, consistent to be macrocytic even back in 2011. She had normal platelet count and normal WBC. Also, other evaluation including a B12, which was 1736 and folate also within normal range. REVIEW OF SYSTEMS: All systems reviewed. It was negative except the above. PAST MEDICAL HISTORY: SVT, panic attack, , hypothyroidism, alcohol abuse. FAMILY HISTORY: Noncontributory. ALLERGIES: TRAZODONE. SOCIAL HISTORY: She is an active smoker, 1/2 pack per day for the last 16 years. She drinks 2-3 alcohol of wine; however, per further questioning, she is drinking 1 bottle of wine on a daily basis, we do not know for how long. PHYSICAL EXAMINATION: VITAL SIGNS: Today, temperature 36.8, pulse 80, respirations 19, blood pressure is 137/66, SpO2 was 97% on room air. GENERAL: The patient was sitting in chair, was not in acute distress. LUNGS: Clear to auscultation bilaterally. HEART: Regular rate and rhythm, S1, S2 within normal limits. LABORATORY DATA: Today, WBC 6.9, hemoglobin 7.8, MCV is 107, platelet count 371. ASSESSMENT AND PLAN: A 63-year-old female who has been evaluated because of her macrocytic anemia, within normal range of folate [place] [address] CONSULTATION Name: FARZAD YOUNGER Room: [address] IN [facility]#: [id number] Admission: 05/22/18 Attend Phys: Baldemar Dumont, Discharge: Date of : 57 Report #: [id number] patient's anemia worsened during hospitalization. It could have dilutional effect and she could be dehydrated; however, in such cases, differential diagnosis to her macrocytic anemia with ruling out any nutritional deficiencies like B12 and folate deficiency will be liver injury due and toxic effect on the bone marrow by alcohol; however, I would like to rule out any possibility of myelodysplastic syndrome, which can present with the same condition. RECOMMENDATIONS: 1. The patient does not need transfusion at this point unless her hemoglobin is below 7 and symptomatic. 2. We will obtain peripheral blood smear, serum copper level, hepatitis profile and hemolysis workup. Also, if she continues to stay inpatient in rehab or on the floor, I would like to obtain a bone marrow biopsy to rule out any possibility of myelodysplastic syndrome. Plan was discussed with the patient. <ELECTRONICALLY SIGNED> By: Louie Silva MD 06/04/18 1241 [id number] Silva MD /nt
--- NOTE | 2018-06-04 16:58 | NUR ---
PT UP IN ROOM WITH SB ASSIST. CALLS APROPRIATELY. PT ORIENTED TO NAME AND TIME. FREQUENTLY DISORIENTED TO PLACE BUT REORIENTS EASILY. PAIN WELL CONTROLLED WITH MOTRIN. LEFT ARM REMAINS IN SLING. PLAN TO TRANSFER TO REHAB PENDING INSURANCE
[2018-06-04 20:00] VITALS: BP 117/54
--- NOTE | 2018-06-05 04:42 | NUR ---
PATIENT HAS REMAINED ALERT AND ORIENTED X 2-3. THIS SEEMS TO FLUCUATE SHE TALKS ABOUT SITUATIONS IF SHE WERE SOMEWHERE ELSE AT TIMES. SHE HAS BEEN CALM AND COOPERATIVE WITH REDIRECT. PT IS NOT CONSISTENT IN THE CARE OF LUE. SPECIFICALLY KEEPING SLING MAINTAINED AND NEEDS REMINDING. LUE DRESSING INTACT. 2+ PITTING EDEMA PERSISTS LUE WITH RED, PURPLE AND YELLOW BRUISING. BRUSING AND OTHER SKIN FINDINGS FROM ADMISSION WITH HEALING IN PROGRESS. UP TO BR WITH SBA. BED ALARM ON FOR SAFETY SHE IS INCONSISTENT ALSO WITH CALLING FOR ASSIST. MEDICATED FOR PAIN X 2 OF THIS WRITING WHICH INCLUDES SCHEDULED IBUPROFEN. VITAL SIGNS STABLE. CONTINUE TO MONITOR.
[2018-06-05 07:30] VITALS: BP 130/76
[2018-06-05 16:29] VITALS: BP 133/57
--- NOTE | 2018-06-05 17:24 | NUR ---
PT IS MORE ORIENTED TODAY, A&Ox3. WORKED WITH PT AND WALKED THE BANSAL WITH THE TELECOMM[employer]ICATION[employer] LINE MECHANIC FOR EXERCISE. VITALS STABLE. PAIN MANAGED WITH CURRENT REGIMEN. DRESSING CHANGE DUE TO LEAKAGE CAUSED BY EDEMA. LEFT ARM ELEVATED WITH PILLOWS AND BLANKETS WHILE PT IS IN BED. SIGNIFICANT OTHER CAME TO VISIT FOR A FEW HOURS AND PT REMEMBERED PAST MEMORIES. FALL PRECAUTIONS IN PLACE. WILL CONTINUE TO MONITOR.
--- NOTE | 2018-06-05 17:53 | NUR ---
NURSING DOCUMENTATION BY STACY CALL REVIEWED
[2018-06-05 20:00] VITALS: BP 132/70
--- NOTE | 2018-06-06 04:32 | NUR ---
PATIENT HAS BEEN FAIRLY CONSISTENT IN ORIENTATION TONIGHT AND BEEN MORE APPROPRIATE WITH QUESTIONS AND CONCERNS. NPO AT MIDNIGHT FOR BONE BX BY IR TODAY. SCHEDULED PAIN MEDS ONLY. REFUSED ICE PACK. PATIENT KEEPING SLING IN PLACE TONIGHT WITH LITTLE REMINDING. DRESSING LEFT ARM INTACT. SWELLING/BRUISING REMAIN. VITAL SIGNS STABLE. CONTINUE TO MONITOR.
[2018-06-06 05:00] VITALS: BP 132/74
[2018-06-06 07:20] VITALS: BP 137/69
[2018-06-06 12:10] LABS: KAPPA FREE LIGHT CHAINS 37.4 mg/L (3.3-19.4); LAMBDA FREE LIGHT CHAINS 24.3 mg/L (5.7-26.3)
[2018-06-06 12:10] LABS: HEMATOCRIT 25.5 % (37.0-47.0); HEMOGLOBIN 8.7 gm/dL (12.0-15.0); MCHC 34.1 g/dL (28.0-37.0); MCV 105.4 fL (80.0-100.0); MPV 7.9 fl. (7.2-11.1); NUCLEATED RBCS 0 /100WBC; PLATELET COUNT* 481 thou/uL (150-400); RBC 2.42 mil/uL (4.20-5.00); RDW-CV 13.7 % (10.5-14.5)
--- NOTE | 2018-06-06 12:25 | NUR ---
PT ARRIVED BACK ON UNIT AT 1220 FROM BONE MARROW BIOPSY. VITALS STABLE. BP: 145/75 P:79 T:99.1. BANDAID CLEAN, DRY AND INTACT OVER BIOPSY SITE. PT EDUCATED ON BED REST. BED ALARM SET. WILL CONTINUE TO MONITOR.
--- NOTE | 2018-06-06 12:30 | NUR ---
DISCUSSED WITH . DISCUSSED WITH EMMANUEL/REHAB. SHE SAID SHE FEELS PT.IS DOING TOO GOOD FOR INSURANCE TO AUTH HER TO COME TO ACUTE INPT.REHAB. DISCUSSED WITH S.[place]. AND SON,ANGELICA. THEY WOULD LIKE TO TRY FOR HER TO GO TO A SNF. GAVE THEM LIST OF FACILITIES THAT CONTRACT WITH HER INSURANCE. FIRST CHOICE IS [facility]. SECOND IS [place].
[2018-06-06 12:42] LABS: ABSOLUTE EOSINOPHILS 0.1 thou/uL (0.0-0.7); ABSOLUTE LYMPHOCYTES 1.3 thou/uL (0.8-5.3); ABSOLUTE MONOCYTES 0.6 thou/uL (0.0-1.2); ANISOCYTOSIS 1+; HYPOCHROMASIA 1+; MACROCYTES 2+; PLATELET ESTIMATE INCREASED; POIKILOCYTOSIS 1+
--- NOTE | 2018-06-06 14:02 | NUR ---
DONKEY RIDE OPERATOR CONTACTED ANSHUL WITH V ADMISSIONS TO INFORM OF A REFERRAL FOR SKILLED FOR THE PATIENT, AND FAXED PATIENT'S FACESHEET, H&P, PT/OT NOTES, AND MED LIST. CM WILL REMAIN AVIALABLE TO ASSIST AND FOLLOW NEEDED.
[2018-06-06 15:43] VITALS: BP 108/48
--- NOTE | 2018-06-06 15:59 | NUR ---
CONTINUING TO FOLLOW PATIENT ALONG WITH DR. CARLISLE. PATIENT AMBULATING 200' INDEPENDENTLY WITHOUT AD AND TRANSFERING MOD I. PATIENT MIN-MOD A WITH ADLS 2TO LUE NWB STATUS. NO ST NEEDS. PATIENT NEEDS TO HAVE NEED FOR 2 OUR OF 3 DISCIPLINES TO QUALIFY FOR ACUTE REHAB. SPOKE WITH SATYA CASTELLANO AND INFORMED THAT PATIENT DID NOT QUALIFY FOR ACUTE REHAB AT THIS TIME BUT WOULD BENEFIT FROM SKILLED FOR STRENGTHENING AND ADLS.
--- NOTE | 2018-06-06 17:35 | NUR ---
PT A&Ox3 THIS SHIFT. USING CALL LIGHT APPROPRIATELY. PT REMAINS ON ROOM AIR 97%. EATING SMALL AMOUNT OF MEALS BUT SUPPLEMENTING WITH ENSURE. LEFT ARM REMAINS SWOLLEN, WEAPING EDEMA HAS DECREASED, SLING IN PLACE, ARM ELEVATED ON PILLOW. LEFT RADIAL PULSE 2+. MEPILEX IS CLEAN, DRY AND INTACT. PT REPORTS BM TODAY. VOIDING PER TOILET. PT HAD BONE MARROW BIOPSY THIS MORNING, TOLERATED WELL, BANDAID IS CLEAN, DRY AND INTACT. PT TRANSFERS AND AMBULATES WITH STAND BY ASSIST. REQUIRES SOME SAFTEY REMINDERS. BED AND CHAIR ALARMS IN USE. CALL LIGHT WITHIN REACH. WILL CONTINUE TO MONITOR.
--- NOTE | 2018-06-06 18:47 | NUR ---
NURSING DOCUMENTATION BY STACY PRASAD
[2018-06-06 20:00] VITALS: BP 128/55
--- NOTE | 2018-06-07 04:30 | NUR ---
ASSUMED CARE OF PT AT 1900 PT ALERT AND ORIENTED X3 VS AND ASSESSMENT AT PTS BASELINE. PT CMS CHECKS TO LUE WNL. PT COMPLIANT WITH SLING AND USES CALL [facility] FOR ASSSITANCE TO THE BR. PT HAD PAIN MEDS TWICE THEN SLEPT. WILL CONTINUE PLAN OF CARE.
[2018-06-07 06:09] LABS: GLOBULIN TOTAL 2.4 g/dL (2.2-3.9); M-SPIKE Not Observed g/dL (Not Observed)
[2018-06-07 08:30] VITALS: BP 112/62
--- NOTE | 2018-06-07 15:32 | NUR ---
LINE MAINTENANCE SPOKE TO KRISTEN TO DISCUSS ABILITY TO ACCEPT THE PATIENT AT D/C. KRISTEN INFORMS OF CONCERNS THAT PATIENT 'MAY STILL HAVE A 1:1'. D/C FLOW MACHINE OPERATOR INFORMED KRISTEN THAT UPDATED NOTED WOULD BE FAXED THAT INDICATE THAT PATIENT HAS BEEN OFF 1:1 SINCE 06/02/18. CM AWAITIN RETURN CALL FROM [facility]. CM WILL REMAIN AVIALABLE TO ASSIST AND FOLLOW NEEDED.
[2018-06-07 16:19] VITALS: BP 133/55
--- NOTE | 2018-06-07 16:48 | NUR ---
PATIENT ALERT AND ORIENTED X3. FORGETFUL AT TIMES. PAIN CONTROLLED WITH HYDROCODONE. DRESSING TO LEFT SHOULDER CHANGED THIS AFTERNOON DUE TO WEEPING FROM EDEMA. SLING IN PLACE. PARTICIPATED WITH PT/OT. AMBULATES WITH STANDBY ASSIST. STILL REQUIRES SAFETY REMINDERS. PATIENT HAS BEEN ABLE TO REMAIN OFF 1:1 OBSERVATION SINCE LAST WEDNESDAY. BM TODAY. AWAITING PLACEMENT. IV SALINE LOCKED. VSS. CALL LIGHT WITHIN REACH. BED ALARM SET. WILL CONTINUE TO MONITOR.
[2018-06-07 20:00] VITALS: BP 140/53
[2018-06-08 05:04] LABS: ABSOLUTE BASOPHILS 0.1 thou/uL (0.0-0.2); ABSOLUTE EOSINOPHILS 0.4 thou/uL (0.0-0.7); ABSOLUTE LYMPHOCYTES 1.4 thou/uL (0.8-5.3); ABSOLUTE MONOCYTES 0.8 thou/uL (0.0-1.2); ABSOLUTE NEUTROPHILS 5.4 thou/uL (1.6-8.1); BASOPHILS 1.7 %; EOSINOPHILS 4.3 %; HEMATOCRIT 25.2 % (37.0-47.0); HEMOGLOBIN 8.5 gm/dL (12.0-15.0); LYMPHOCYTES 17.3 %; MCH 35.8 pg (26.0-34.0); MCV 105.3 fL (80.0-100.0); MONOCYTES 10.3 %; MPV 7.8 fl. (7.2-11.1); NUCLEATED RBCS 0 /100WBC; PLATELET COUNT* 552 thou/uL (150-400); POLYS 66.4 %; RBC 2.39 mil/uL (4.20-5.00); RDW-CV 13.4 % (10.5-14.5); WBC 8.1 thou/uL (4.0-11.0)
--- NOTE | 2018-06-08 05:13 | NUR ---
ASSUMED CARE OF PT AT 1900, PT ALERT AND ORIENTED BUT FORGETFUL. PT CONTINUES TO BE COMPLIANT WITH CALLING FOR HELP AND WEARING HER SLING. PT HAD PAIN MEDS TWICE OVERNIGH THEN SLEPT IN BETWEEN. WILL CONTINUE PLAN OF CARE.
[2018-06-08 05:16] LABS: ALBUMIN 2.7 g/dL (3.4-5.0); CALCIUM 7.9 mg/dL (8.5-10.1); CREATININE 0.8 mg/dL (0.6-1.3); POTASSIUM 3.7 mmol/L (3.5-5.1); TOTAL BILIRUBIN 0.3 mg/dL (<0.1-1.0)
[2018-06-08 07:40] VITALS: BP 138/77
--- NOTE | 2018-06-08 07:53 | NUR ---
LATE ENTRY FOR 06/07/18 AT 1100-BRULE/'[facility] CALLED AND SAID THEY DID NOT HAVE BED AVAILABILITY FOR PT. PT.'S SECOND CHOICE WAS [facility]. SPOKE WITH BLANK/[place] AND FAX HER REFERRAL INFORMATION. SHE SAID SHE WOULD REVIEW AND HAVE D.O.N. REVIEW. 1400-CALLED BLANK TO SEE IF THEY HAD A DETERMINATION. SHE SAID SHE WAS IN A MTG.AND WOULD NEED TO CALL CM BACK. SEE CATHIE/NUCLEAR WORKER TECHNICIAN'S NOTE 06/07 AT 1532. BLANK SAID AMY FROM ADMISSION WAS GOING TO COME SEE PT.AM OF 06/08.
[2018-06-08] MEDS ORDERED: ASPIRIN325 PO (09:53)
[2018-06-08] MEDS ORDERED: ALBUTEROL2.5 MG/31 INH (09:57)
--- NOTE | 2018-06-08 09:59 | NUR ---
[facility] HERE TO VISIT PT. PT.APPROPRIATE AND ANSWERED HER QUESTIONS. AMY SAID THEY CAN ACCEPT PT.MEDICALLY. SHE WILL HAVE [facility] INSURANCE AUTHORIZATION. DISCUSSED WITH .
[2018-06-08] MEDS ORDERED: FOLIC ACID1 MG PO (10:00)
[2018-06-08] MEDS ORDERED: NICOTINE TRANSD21 M1 PO (10:03)
[2018-06-08] MEDS ORDERED: HYDROCODONE-AP1 EAC6 PO (10:05)
[2018-06-08] MEDS ORDERED: TUMS PO (10:06)
[2018-06-08] MEDS ORDERED: PEPCID20 MG PO (10:07)
[2018-06-08] MEDS ORDERED: PRENATABS FA T1 EACH PO (10:09)
[2018-06-08] MEDS ORDERED: SENNA8.6 MG PO (10:10)
[2018-06-08] MEDS ORDERED: VITAMINE B-1100 MG PO (10:11)
[2018-06-08 10:19] VITALS: BP 138/77
[2018-06-08 15:27] VITALS: BP 126/67
--- NOTE | 2018-06-08 17:49 | NUR ---
PT IS A&Ox3. UP WITH STAND BY ASSIST. ROOM AIR WITH 97%. VITALS STABLE, BP 138/77, P 76, TEMP 98.8. DISCHARGE TO SNF GOT DENIED DUE TO INSURANCE. SLING IN PLACE. DRESSING TO L SHOULDER CLEAN, DRY, INTACT. PAIN CONTROLED WITH [place]. [facility] NOTIFIED YANNICK THAT PT WOULD BE DISCHARGED HOME. FALL PRECAUTIONS IN PLACE. CALL LIGHT WITHING REACH. WILL CONTINUE TO MONITOR.
[2018-06-08 19:00] VITALS: BP 142/58
--- NOTE | 2018-06-08 20:46 | NUR ---
ASSESSMENT COMPLETE. PT C/O 3/10 PAIN TO LEFT UE. PT NON COMPLIANT KEEPING ARM IN SLING OR IMMOBILE. 1+ EDEMA TO LUE. IV SL. PT DENIES N/V/D. PT IS UP WITH STEADY GAIT WITH SBA. FALL PRECAUTIONS IN PLACE. CLWR.
--- NOTE | 2018-06-09 06:47 | NUR ---
PT HAS BEEN UP TO BATHROOM APPROXIMATELY EVERY 30 MINUTES T/O THIS SHIFT. PT HAS BEEN RESTLESS AND ANXIOUS. PT ALSO NON COMPLIANT WITH SLING AND CALL LIGHT.
[2018-06-09 07:55] VITALS: BP 146/84
--- NOTE | 2018-06-09 15:04 | NUR ---
PT DC'D HOME WITH SON WITH ALL BELONGINGS. PT REFUSED WOUND PICTURES ON DC. L ARM IN SLING, PT REPEATEDLY REMINDED TO KEEP ARM ELEVATED AND IN SLING. PT NONCOMPLIANT ABOUT ROM RESTRICTIONS TO L ARM. PT PAIN MANAGED WELL WITH ORDERED PAIN MED. PT ACKNOWLEDGED DC INSTRUCTIONS AND MEDICATIONS.
--- NOTE | 2018-06-09 15:21 | NUR ---
PT SENT WITH RX X2
--- NOTE | 2018-06-09 16:49 | NUR ---
PT.'S RIDE WAS HERE AND CM HAD NOT SET UP HH . PT.WAS AGREEABLE TO [facility] FOR HOME HEALTH THEY TAKE HER INSURANCE. CM CONTACTED [facility]AN[facility] AND GAVE INFORMATION. SHE SAID THEY CAN ACCEPT HER TO SERVICE. THEY CAN SEE HER TOMORROW OR WEDNESDAY. FAXED H&P,THELMA CONSULT,ORTHO CONSULT,OP REPORT,PROGRESS NOTE FROM TODAY AND DISCHARGE ORDERS TO [phone]. NURSING HAD INSTRUCTED PT.THAT HOME HEALTH AGENCY WOULD CALL HER TO SET UP APPT. SON PICKED HER UP FROM HOSPITAL.
--- NOTE | 2018-06-10 07:14 | OP ---
[address] [address] OPERATIVE REPORT Name: FARZAD YOUNGER Room: [address] IN M.R.#: [id number] Admission: 05/22/18 Attend Phys: Baldemar Dumont, Discharge: 06/09/18 Date of : 57 Report #: [id number] THIS REPORT FOR: //name// CC: Isrrael Dumont DATE OF SERVICE: 05/31/2018 PREOPERATIVE DIAGNOSIS: Left comminuted displaced proximal humerus fracture. POSTOPERATIVE DIAGNOSIS: Left comminuted displaced proximal humerus fracture with bone loss. PROCEDURE: 1. Open reduction and internal fixation of left comminuted proximal humerus fracture, 4-part with allograft bone graft. 2. Physician directed fluoroscopy greater than 1 hour. SURGEON: Isrrael Daley DO ARCHITECTURAL TECHNICIAN: Matthew Oswald DO ANESTHESIA: General. ANTIBIOTICS: Weight appropriate dosing Ancef IV. BLOOD LOSS: 350 mL. FLUIDS: 1300 mL of lactated Ringer's. COMPLICATIONS: None. SPECIMENS: None. DRAINS: None. CONDITION: The patient is stable to PACU. IMPLANTS: Lisa 8-hole proximal humerus plate locking screws proximally. The first screw distally is locking. The remaining 3 screws are cortical and Lisa Norian bone graft. INDICATION FOR PROCEDURE: The patient is a 63-year-old female who sustained a complex left proximal humerus fracture. She was not cleared medically. She was in alcohol withdrawal and had some other medical issues. I had been in direct contact with medical team in regards to her surgical clearance. She had readiness today. I went over the risks and complications associated with [facility] [address] [place] [address] OPERATIVE REPORT Name: FARZAD YOUNGER Room: [address] M.R.#: [id number] Admission: 05/22/18 Attend Phys: Baldemar LeightonAlma Rosa Jimmyjosé manuelarron, Discharge: 06/09/18 Date of : 57 Report #: [id number] surgery not only with the patient, but her son who is power of commonwealth attorney and her boyfriend. We obtained consent. DESCRIPTION OF PROCEDURE: I marked the left upper extremity in the presence of the operative team members. Everyone agreed this was correct. She was taken back to the operative suite where a briefing was performed indicating correct patient, procedure, site, antibiotics and that implants were present and sterile. All team members agreed. She was transferred over to the operative table in supine position, well-padded and secured. General anesthetic was administered. She was then placed in the beach chair position, appropriately secured and padded. Left upper extremity was sterilely prepped and draped in standard fashion. Timeout was performed indicating correct patient, procedure, site, antibiotics and that implants were present and sterile. All team members agreed. Marked out our incision for a deltopectoral approach extending out to the anterolateral aspect, scalpel through skin, maintaining hemostasis and careful dissection down. We identified the deltopectoral interval and the cephalic vein. This was protected throughout the entirety of the case. We followed down distally, incised through fascia, protected the cephalic vein and it was moved laterally. We were able to mobilize the biceps medially. We identified the musculocutaneous nerve and the vascular bundle associated and protected this throughout the entirety of the case. We split brachialis right through midline, making sure careful soft tissue dissection and protecting any structures that would be laterally or medially. We had gained access for plate placement. We did have to release some aspect of the pec major tendon as this was causing some displacement of the shaft fracture. We only released what was necessary of the deltoid off the anterior margin for plate placement, left at least two-thirds of the deltoid attachment remaining. Proximally, she had developed significant adhesions from the bursal area underneath the deltoid fascia. We carefully freed up the adhesions and removed any bursal tissue. Complex fracture, this was to be expected based on preoperative images, 4-part proximal humerus with comminution of the shaft segment. It was at least 8 mm of medial calcar remaining; however, getting a cortical read on this would be quite difficult as there was bone loss laterally and getting stability of the calcar to the shaft and obtaining the reduction was quite difficult. We cleaned off fracture edges, the main cortical piece along the shaft. We were able to leave some soft tissue attachment and directly reduce this and place two 2.7 lag screws by technique. These had good purchase and secured that fragment. At that point in time, we rotated our humeral head. The articular surface was impacted into a valgus position, trying to break this up would have led to even more bone loss. Therefore, we left it in its position with its attachment to the medial calcar. With the medial calcar in place, there was no real way to get a clamp on to this. This will just have to be held with the plate and checked with x-ray to make sure that we were overall appropriate due to bone loss. I was able to get #2 FiberWire suture tag throughout the tuberosities and this was able to be pulled over as an envelope for reduction and guiding plate would be placed 1 cm distal to the greater tuberosity. Once we placed an 8-hole [address] [address] OPERATIVE REPORT Name: FARZAD YOUNGER Room: [address] IN ..#: [id number] Admission: 05/22/18 Attend Phys: Baldemar Dumont, Discharge: 06/09/18 Date of : 57 Report #: [id number] plate, multiple C-arm images were taken in different attempts at reduction until we had it overall lined up appropriately. This was K-wired into position. A cortical screw was placed distally. This had good purchase and sucked down to the bone proximally and we first placed a cancellous screw. This had minimal purchase but did give some overall stability for the proximal construct allowing for us to begin placing locking screws through the locking guides. We had [address] Cancellous screw was removed as it would be in the way for the remaining screws. Before proceeding forward, we brought in C-arm. We had confirmed that we had established an overall acceptable reduction and plate placement was appropriate. At that point in time, we placed our remaining screws distally. The most proximal screw was going to be into a fairly weak bone. Therefore, this most proximal screw was placed as a locker to protect the remaining cortical screws distally in which there were 3 in those placed. We then placed the remaining locking screws proximally. At this point in time, all hardware was in position, the humerus was moving as a unit. X-ray showed overall acceptable reduction and appropriate position of hardware with screws contained within the femoral head and a good inferior medial calcar screw. We thoroughly irrigated with normal saline. A 10 mL of Vitoss Lisa bone graft were prepared on the back table. This was then placed into the defect. Final images were saved with bone graft in place. At that point in time, we began our closure. The previously tagged FiberWire sutures were sewn to within the plate and to each other to reapproximate the rotator cuff. This was overall stable. A 0 Vicryl was then used to reapproximate the pectoralis major tendon that had been released. A 0 Vicryl was then used to close the deltopectoral interval and fascial layer continuing distally. This did have a good closure and not under any significant tension. We then irrigated the subcutaneous layer, which was closed with 2-0 Monocryl buried deep and angel for skin. Debriefing was performed where we confirmed the procedure. Blood loss and all counts were correct and final. All team members agreed. Sterile dressings of Xeroform, 4 x 4s, ABD and tape were applied. She was extubated and transferred off the operating table, was taken to PACU stable. POSTOPERATIVE COURSE AND EVALUATION: None of her family members are present nor her boyfriend. There was a number left. I tried calling the number to the son and the number to the boyfriend. This was not immediately answered. I will try again. She was resting in the PACU. PACU film showed stable internal fixation and fracture reduction. Overall, her vital signs were stable. Her pain was controlled. She was denying any numbness or tingling in her extremities. She could feel me touching over the lateral aspect of the shoulder proximally throughout the deltoid. She was able to activate flexion at the elbow, activate some supination and she could extend the fingers at the MCP joints, the wrist and flex all fingers. Neurovascularly, she was intact with an exam unchanged compared to her preoperative exam. She is nonweightbearing in that extremity. We will allow range of motion, especially at the elbow, wrist and fingers, [address] [address] OPERATIVE REPORT Name: FARZAD YOUNGER Room: [address] ..#: [id number] Admission: 05/22/18 Attend Phys: Baldemar Dumont, Discharge: 06/09/18 Date of : 57 Report #: [id number] shoulder when she can allow. We will begin with passive due to the significant comminution of this fracture and bone loss. <ELECTRONICALLY SIGNED> By: Sean Lovelace DO 06/10/18 [id number] Daley DO /adelina
== END 2018-06-09 15:20 | disposition home health service (06) | DRG 492 ==
LOC: M.ERS 04:30 → M.ORTHSURG 06:24 → M.2W 06:24 → M.3W 06:24 → M.TBA-ER 06:24 → M.3W 08:35 → M.2W 20:18 → M.ORTHSURG 05-31 07:29
PROVIDERS: Emergency Medicine; Internal Medicine; ADMIT Family Medicine
PROC: 0PSG04Z Reposition Left Humeral Shaft with Internal Fixation Device, Open Approach (ICD-10-PCS; principal; 2018-06-01)
PROC: B4181ZZ Fluoroscopy of Bilateral Renal Arteries using Low Osmolar Contrast (ICD-10-PCS; 2018-06-07)
PROC: 07DR3ZX Extraction of Iliac Bone Marrow, Percutaneous Approach, Diagnostic (ICD-10-PCS; 2018-06-07)
DX: S42.352A Displaced comminuted fracture of shaft of humerus, left arm, initial encounter for closed fracture (principal); J96.01 Acute respiratory failure with hypoxia; J18.9 Pneumonia, unspecified organism; G92 Toxic encephalopathy; E43 Unspecified severe protein-calorie malnutrition; E87.1 Hypo-osmolality and hyponatremia; N39.0 Urinary tract infection, site not specified; R65.10 Systemic inflammatory response syndrome (SIRS) of non-infectious origin without acute organ dysfunction; F10.230 Alcohol dependence with withdrawal, uncomplicated; I12.9 Hypertensive chronic kidney disease with stage 1 through stage 4 chronic kidney disease, or unspecified chronic kidney disease; N18.9 Chronic kidney disease, unspecified; W18.39XA Other fall on same level, initial encounter; D53.9 Nutritional anemia, unspecified; E86.1 Hypovolemia; F41.1 Generalized anxiety disorder; F41.0 Panic disorder [episodic paroxysmal anxiety]; E03.9 Hypothyroidism, unspecified; F17.210 Nicotine dependence, cigarettes, uncomplicated; F10.220 Alcohol dependence with intoxication, uncomplicated; D64.9 Anemia, unspecified; E87.8 Other disorders of electrolyte and fluid balance, not elsewhere classified; Z68.20 Body mass index [BMI] 20.0-20.9, adult; Y93.89 Activity, other specified; Y92.89 Other specified places as the place of occurrence of the external cause; Y99.8 Other external cause status; Z98.891 History of uterine scar from previous surgery; Z79.899 Other long term (current) drug therapy; Z88.8 Allergy status to other drugs, medicaments and biological substances

== ENCOUNTER 2018-06-09 23:14 | Emergency (ER) | payer OTHER ==
[~2018-06-09] VITALS: Ht 162.5 cm; Wt 49.9 kg
[~2018-06-09 23:14] MED LIST changes: +ALBUTEROL2.5 MG/31 INH; +ASPIRIN325 PO; +CHLORDIAZEPOXID25 M1 PO; +FOLIC ACID1 MG PO; +NICOTINE TRANSD21 M1 PO; +PEPCID20 MG PO; +PRENATABS FA T1 EACH PO; +SENNA8.6 MG PO; +TUMS PO; +VITAMINE B-1100 MG PO
[2018-06-09 23:38] VITALS: BP 121/74
== END 2018-06-09 23:44 | disposition home or self-care (01) ==
LOC: M.ERS 23:14
DX: G89.18 Other acute postprocedural pain (principal); M79.602 Pain in left arm; F41.0 Panic disorder [episodic paroxysmal anxiety]; E03.9 Hypothyroidism, unspecified; F17.210 Nicotine dependence, cigarettes, uncomplicated; Z88.8 Allergy status to other drugs, medicaments and biological substances; Z98.890 Other specified postprocedural states